=== PATIENT | male | born 1980 | race Caucasian/White ===

== ENCOUNTER 2016-12-06 18:09 | Inpatient (IN) | payer MEDICARE, MEDICAID ==
[~2016-12-06] VITALS: Ht 185.4 cm; Wt 70.3 kg
[2016-12-06 18:38] LABS: BASOPHILS % (AUTO) 0.4 % (0.0-2.0); EOSINOPHILS % (AUTO) 3.3 % (1.0-6.0); HEMOGLOBIN 13.8 g/dL (13.5-17.5); LYMPHOCYTES # (AUTO) 1.5 K/uL (1.0-4.8); LYMPHOCYTES % (AUTO) 16.1 % (22.0-44.0); MEAN CORPUSCULAR HEMOGLOBIN 28.7 pg (26.0-34.0); MEAN CORPUSCULAR VOLUME 90 fL (80-100); MONOCYTES # (AUTO) 0.6 K/uL (0.1-1.0); MONOCYTES % (AUTO) 6.7 % (2.0-9.0); NEUTROPHILS # (AUTO) 6.9 K/uL (1.8-7.7); NEUTROPHILS % (AUTO) 73.5 % (40.0-70.0); PLATELET COUNT (AUTO) 248 K/uL (150-450); RED CELL DISTRIBUTION WIDTH 13.9 % (11.5-14.5); WHITE BLOOD COUNT (AUTO) 9.4 K/uL (4.5-11.0)
[2016-12-06 18:55] LABS: ANION GAP 3 mmol/L (8-16); CARBON DIOXIDE 34 mmol/L (22-29); CHLORIDE 106 mmol/L (98-107); CREATININE 0.96 mg/dL (0.60-1.30); GLOMERULAR FILTR. RATE CALC > 60 mL/min (>60); POTASSIUM 4.1 mmol/L (3.5-5.1); SODIUM SERUM 143 mmol/L (136-145); UREA NITROGEN, BLOOD 17 mg/dL (7-18)
[2016-12-06 19:01] LABS: ALANINE AMINOTRANSFERASE 26 U/L (12-78); ASPARTATE AMINOTRANSFERASE 32 U/L (15-37); BILIRUBIN,TOTAL 0.3 mg/dL (0.1-1.0); TOTAL PROTEIN, SERUM 7.3 g/dL (6.4-8.2)
[2016-12-06] MEDS ORDERED: LORazepam 2 MG TABLET PO PRN (19:45)
[2016-12-06] MEDS ORDERED: HALOPERIDOL 5 MG TABLET PO PRN (19:45)
[2016-12-06] MEDS ORDERED: ZOLPIDEM TARTRATE 10 MG TABLET PO PRN (19:45)
[2016-12-06] MEDS ORDERED: LOPERAMIDE HCL 2 MG CAPSULE PO ONE (20:45)
[2016-12-06 22:24] VITALS: BP 124/79
[2016-12-06 22:56] VITALS: BP 120/72
[2016-12-07 00:06] VITALS: BP 102/75
[2016-12-07] MEDS ORDERED: PROMETHAZINE HCL 25 MG/ML VIAL IM PRN (07:15)
[2016-12-07] MEDS ORDERED: ONDANSETRON HCL 4 MG TABLET PO PRN (07:15)
[2016-12-07 08:27] VITALS: BP 109/61
[2016-12-07 16:41] VITALS: BP 100/60
[2016-12-08 06:27] VITALS: BP 100/65
[2016-12-08 08:24] VITALS: BP 107/63
[2016-12-08] MEDS: FLUoxetine HCL 20 MG CAPSULE PO SCH (09:16)
[2016-12-08 16:10] VITALS: BP 103/63
[2016-12-08] MEDS: OLANZapine 5 MG TABLET PO SCH (20:39)
[2016-12-09 05:44] VITALS: BP 97/63
[2016-12-09 08:25] VITALS: BP 102/68
[2016-12-09] MEDS: FLUoxetine HCL 20 MG CAPSULE PO SCH (08:39)
[2016-12-09 16:15] VITALS: BP 106/67
[2016-12-09] MEDS: OLANZapine 5 MG TABLET PO SCH (20:37)
[2016-12-10 01:35] VITALS: BP 104/63
[2016-12-10 08:00] VITALS: BP 106/67
[2016-12-10] MEDS: FLUoxetine HCL 20 MG CAPSULE PO SCH (08:26)
[2016-12-10 16:08] VITALS: BP 112/62
[2016-12-10] MEDS: OLANZapine 5 MG TABLET PO SCH (20:05)
[2016-12-11 06:17] VITALS: BP 103/63
[2016-12-11 08:07] VITALS: BP 110/63
[2016-12-11] MEDS: FLUoxetine HCL 20 MG CAPSULE PO SCH (08:40)
[2016-12-11 16:00] VITALS: BP 109/68
[2016-12-11] MEDS: OLANZapine 5 MG TABLET PO SCH (20:17)
[2016-12-12 00:56] VITALS: BP 101/61
[2016-12-12 08:15] VITALS: BP 107/63
[2016-12-12] MEDS: FLUoxetine HCL 20 MG CAPSULE PO SCH (08:38)
[2016-12-12 16:10] VITALS: BP 118/84
[2016-12-12] MEDS: OLANZapine 5 MG TABLET PO SCH (20:39)
[2016-12-13 00:23] VITALS: BP 102/63
[2016-12-13 08:29] VITALS: BP 107/61
[2016-12-13] MEDS: FLUoxetine HCL 20 MG CAPSULE PO SCH (08:38)
[2016-12-13] MEDS ORDERED: OLAN5TAB2 PO (13:23)
[2016-12-13] MEDS ORDERED: FLUO20CA30 PO (13:23)
== END 2016-12-13 14:18 | disposition home or self-care (01) | DRG 885 ==
LOC: EMS 18:11 → B2S 20:35 → B2X 22:10
PROVIDERS: ADMIT Psychiatry & Neurology Child & Adolescent Psychiatry; ATTEND Psychiatry & Neurology Child & Adolescent Psychiatry
DX: F29 Unspecified psychosis not due to a substance or known physiological condition (principal); R45.851 Suicidal ideations; F32.9 Major depressive disorder, single episode, unspecified; R45.87 Impulsiveness; Z79.899 Other long term (current) drug therapy; Z59.0 Homelessness
CPT/HCPCS: 99285; G0480